=== PATIENT | male | born 1995 | race Caucasian/White ===

== ENCOUNTER → 2020-06-22 | Outpatient (CLI) | payer OTHER ==
--- NOTE | 2020-06-22 13:07 | REP ---
INDICATION: PAIN. COMPARISON: None. TECHNIQUE: Four views FINDINGS: There is mild soft tissue swelling about the PIP joint and adjacent phalanges of the 4th and 5th digit. Volar plate avulsions are noted from the middle phalanx at both PIP joints. There is no other fracture or focal lesion. The metacarpals, MCP, CMC joints and the visualized carpal bones were unremarkable IMPRESSION: 1. Left 4th and 5th digit PIP joint volar plate avulsion fractures off the middle phalanges. Soft tissue swelling noted. No other fracture or focal lesion. <Electronically signed by Derick Marrero > 06/22/20 2107
== END ==
LOC: M WUC 11:49
PROVIDERS: ATTEND Nurse Practitioner Family
DX: S62.655A Nondisplaced fracture of middle phalanx of left ring finger, initial encounter for closed fracture (principal); S62.657A Nondisplaced fracture of middle phalanx of left little finger, initial encounter for closed fracture; X58.XXXA Exposure to other specified factors, initial encounter; Y92.89 Other specified places as the place of occurrence of the external cause; Y93.89 Activity, other specified; Y99.8 Other external cause status